=== PATIENT | male | born 1965 | race Caucasian/White ===

== ENCOUNTER 2017-11-21 17:07 | Emergency (ER) | payer MEDICARE, MEDICAID ==
[~2017-11-21] VITALS: Ht 175.3 cm; Wt 78.0 kg
[~2017-11-21 17:07] MED LIST: ABILIFY5 MG PO; AMBIEN5 MG PO; ARTANE2 MG PO; AUGMENTIN 875-1 EAC1 ORAL; CLINDAMYCIN HC300 MG ORAL; COGENTIN1 MG PO; COMBIGAN EYE DRO5 ML OP; LEXAPRO10 MG PO; LYRICA50 MG PO; MELOXICAM15 MG PO; MOM30 ML PO; NEURONTIN100 MG PO; OMEPRAZOLE20 M2 PO; OXYCONTIN60 MG PO; TYLENOL 8 HOUR650 M1 PO; VALIUM2 MG PO; ZOFRAN4 MG PO
[2017-11-21 20:55] VITALS: BP 155/100
[2017-11-21] MEDS ORDERED: LORazepam Inj 2mg/ml 1ml IM ONE ×2 (21:00→22:00)
[2017-11-21] MEDS ORDERED: LIBRIUM25 MG ORAL (21:59)
[2017-11-21 22:00] VITALS: BP 146/94
[2017-11-21 22:15] VITALS: BP 146/94
--- NOTE | 2017-11-22 14:22 | Emergency Room Report ---
History of Present Illness General Chief Complaint: General Complaint Source: Patient Present Illness HPI 52-year-old male presents ED for evaluation. Patient states he was sent here to be admitted for alcohol detox and for psych evaluation. Patient states he is history at all abuse per states his last drink was earlier today. Patient also states has history of bipolar. Denies any suicidal or homicidal ideation. Denies hearing voices. Denies any other drug use. No other aggravating or leading factors. Denies any other associated symptoms Allergies: Coded Allergies: No Known Allergies (Unverified , 01/24/13) Patient History Past Medical History: psych hx Past Surgical History: none Pertinent Family History: none Social History: Reports: alcohol use, Denies: smoking, drug use Immunizations: UTD Reviewed Nursing Documentation: PMH: Agreed, PSxH: Agreed Nursing Documentation-PMH Hx Cardiac Problems: No - ALCOHOLISM Hx Cancer: No Hx Gastrointestinal Problems: Yes Review of Systems All Other Systems: negative except mentioned in HPI Physical Exam Vital Signs Date Time Temp Pulse Resp B/P (MAP) Pulse Ox O2 Delivery O2 Flow Rate FiO2 11/21/17 20:31 98.1 102 18 155/100 96 Room Air Sp02 EP Interpretation: reviewed, normal General Appearance: no apparent distress, alert, GCS 15, non-toxic Head: normocephalic, atraumatic Eyes: bilateral eye normal inspection, bilateral eye PERRL ENT: hearing grossly normal, normal pharynx, no angioedema, normal voice Neck: full range of motion, supple/symm/no masses Respiratory: chest non-tender, lungs clear, normal breath sounds, speaking full sentences Cardiovascular #1: regular rate, rhythm, no edema Cardiovascular #2: 2+ carotid (R), 2+ carotid (L), 2+ radial (R), 2+ radial (L) , 2+ dorsalis pedis (R), 2+ dorsalis pedis (L) Gastrointestinal: normal bowel sounds, non tender, soft, non-distended, no guarding, no rebound Rectal: deferred Genitourinary: normal inspection, no CVA tenderness Musculoskeletal: back normal, gait/station normal, normal range of motion, non- tender Neurologic: alert, oriented x3, responsive, motor strength/tone normal, sensory intact, speech normal Psychiatric: judgement/insight normal, memory normal, anxious Reflexes: 3+ bicep (R), 3+ bicep (L), 3+ tricep (R), 3+ tricep (L), 3+ knee (R) , 3+ knee (L) Skin: normal color, no rash, warm/dry, well hydrated Lymphatic: no adenopathy Medical Decision Making Diagnostic Impression: Primary Impression: Alcohol withdrawal Qualified Codes: F10.239 - Alcohol dependence with withdrawal, unspecified ER Course Hospital Course 52-year-old male presents ED complaining of shaking, stating he is in withdrawal. Chronic history of alcohol use Differential diagnoses include: Alcohol intoxication, drug abuse, opioid withdrawal, alcohol withdrawal, dehydration, drug seeking behavior Clinical course Patient placed on stretcher. after intial history, physical exam reveals a middle-aged male in no acute distress. Patient appears anxious but not tremulous. Vital stable. Mentating well. No signs of DTs I do not believe patient requires admission at this time. Given Ativan here. Remains stable. I will discharge with Librium. Recommended followup with PMD spoke to PMD Dr Crespo; he agrees with plan i. I feel this is a highly complex case requiring extensive working including EKG/Rhythm strip, Xray/CT/US, Blood/urine lab work, repeat exams while in ED, and administration of strong opiates/narcotics for pain control, admission to hospital or close patient follow up. Diagnosis - alcohol withdrawal Stable and discharged to home with prescription for Librium. Followup with PMD. Return to ED if symptoms recur or worsen Last Vital Signs Date Time Temp Pulse Resp B/P (MAP) Pulse Ox O2 Delivery O2 Flow Rate FiO2 11/21/17 22:15 98.1 94 18 146/94 97 Room Air Status: improved Disposition: HOME, SELF-CARE Condition: Stable Scripts Chlordiazepoxide (Chlordiazepoxide HCl) 25 Mg Capsule 25 MG ORAL THREE TIMES A DAY, #15 CAP 0 Refills Prov: SOL DAVIS M.D. 11/21/17 Patient Instructions: Alcohol Withdrawal SOL DAVIS M.D. Nov 22, 2017 14:22
== END 2017-11-21 22:15 | disposition home or self-care (01) ==
LOC: EMR 17:59
DX: F10.239 Alcohol dependence with withdrawal, unspecified (principal)
CPT/HCPCS: 96372; 99284

== ENCOUNTER 2019-03-20 02:36 | Emergency (ER) | payer MEDICARE, MEDICAID ==
[~2019-03-20] VITALS: Ht 170.2 cm; Wt 63.5 kg
[~2019-03-20 02:36] MED LIST changes: +LIBRIUM25 MG ORAL
--- NOTE | 2019-03-20 03:05 | Emergency Room Report ---
History of Present Illness General Chief Complaint: Lower Back Pain or Injury Source: Patient Present Illness HPI This is a 53-year-old male with a history of chronic pain. He takes OxyContin and oxycodone for his pain. He claimed that his been out of his pain medication for a week. Complaining of lower back pain. Pain is 10 out of 10. No radiation but no fever chills but no nausea no vomiting. Denies any other complaint. No incontinence of bowel or urine. No trauma. No fever. He claimed that the pharmacy has his medication on back order. Other pharmacies do not have his medication. Allergies: Coded Allergies: No Known Allergies (Unverified , 01/24/13) Patient History Past Medical History: see triage record, old chart reviewed Past Surgical History: other Pertinent Family History: none Social History: Denies: smoking Immunizations: other Reviewed Nursing Documentation: PMH: Agreed; PSxH: Agreed Nursing Documentation-PM Past Medical History: No History, Except For Hx Cardiac Problems: No - ALCOHOLISM Hx Cancer: No Hx Gastrointestinal Problems: Yes Review of Systems Eye: Denies: eye pain, blurred vision ENT: Denies: ear pain, nose congestion, throat swelling Respiratory: Denies: cough, shortness of breath Cardiovascular: Denies: chest pain, palpitations Gastrointestinal: Denies: abdominal pain, diarrhea, nausea, vomiting Musculoskeletal: Reports: back pain; Denies: joint pain Skin: Denies: rash Neurological: Denies: headache, numbness Endocrine: Denies: increased thirst, increased urine Hematologic/Lymphatic: Denies: easy bruising All Other Systems: negative except mentioned in HPI Physical Exam Vital Signs Date Time Temp Pulse Resp B/P (MAP) Pulse Ox O2 Delivery O2 Flow Rate FiO2 03/20/19 02:40 97.9 93 18 96 Room Air vitals unremarkable Sp02 EP Interpretation: reviewed, normal General Appearance: well appearing, no apparent distress, alert Head: normocephalic, atraumatic Eyes: bilateral eye PERRL, bilateral eye EOMI ENT: hearing grossly normal, normal pharynx Neck: full range of motion, supple, no meningismus Respiratory: chest non-tender, lungs clear, normal breath sounds Cardiovascular #1: regular rate, rhythm, no murmur Gastrointestinal: normal bowel sounds, non tender, no mass, no organomegaly, no bruit, non-distended Musculoskeletal: back normal - Tenderness to the lower Back. No deformity. No anesthesia., gait/station normal, normal range of motion Psychiatric: mood/affect normal Skin: warm/dry Medical Decision Making Diagnostic Impression: Primary Impression: Low back pain Qualified Codes: M54.5 - Low back pain ER Course Patient presents with back pain. No evidence of cauda equina syndrome, spinal epidural abscess or neoplastic process. Patient has a history of alcohol abuse and intoxication. He said his been out of his pain medication for over a week. He filled a prescription for oxycodone 30 mg #60 on March 08. A week prior to that he withdrew prescription for oxycodone total of 60 tablets. He usually get his refills first week of the month. [facility] pharmacy [facility]. Patient in no problem getting his prescriptions filled. He is in independent living. I suspect no by mouth dependence and drug-seeking behavior. I am uncomfortable prescribing her giving him narcotics at this point in time. Last Vital Signs Date Time Temp Pulse Resp B/P (MAP) Pulse Ox O2 Delivery O2 Flow Rate FiO2 03/20/19 02:40 97.9 93 18 96 Room Air Status: improved Disposition: HOME, SELF-CARE Condition: Stable Patient Instructions: Back Pain, Adult Additional Instructions: Follow-up with your doctor in 7 days. Take your medication. Return if worse. Thuan Lopez MD March 20, 2019 03:05
[2019-03-20 03:10] VITALS: BP 131/92
--- NOTE | 2019-03-20 03:10 | NUR ---
ED Nurse Note: RECIEVED PT WALKED IN WITH C/O ABD PAIN, PT IS IN BED SLEEPING AROUSES EASILY TO VERBAL STIMULI, PT STATES HE HAS BEEN DRINKING, PT HAS STRONG WTOH ODOR NOTED, PT ALSO WEARING ARMBAND FROM HOSPITAL JUST RELEASED WITH TIME AND DATE, PT WAS RELEASED FROM [facility] VIA [facility] AND INSTEAD OF HOME HAD [facility]I BRING HIM HER FOR PAIN MEDS, PT ASKING FOR MED REFILL, HAS RECORDS OF PT HAVING MEDS REFILLED 2 DAYS AGO, PT ADMITS TO HAVING THEM FILLED, PT WAS GIVEN F/U INFO FOR PMD AND AFTER CARE INSTRUCTIONS, TP WAS GIVEN MOTRIN FOR PAIN AND DISCHARGED BACK HOME, PT IS AWAKE, ALERT AND ORIENTED X 4, PT STATES HE HAS HIS OWN MONEY AND CREDIT CARDS FOR [employer], PT LEFT AMBULATING IN NAD NOTED. ARMBAND REMOVED.
[2019-03-20 03:15] VITALS: BP 131/92
== END 2019-03-20 03:15 | disposition home or self-care (01) ==
LOC: EMR 02:56
DX: M54.5 Low back pain (principal)
CPT/HCPCS: 99282

== ENCOUNTER 2019-06-14 05:03 | Emergency (ER) | payer MEDICARE, MEDICAID ==
[~2019-06-14] VITALS: Ht 167.6 cm; Wt 72.1 kg
--- NOTE | 2019-06-14 05:15 | NUR ---
ED Nurse Note: Recieved pt from streets with many complaints, pt c/o chronic back pain at 07/23, states cant swallow and has esophagus problem, and now stating he is homeless and kicked out of SNF where he was residing, pt denies cp, no sob or labored breathing, pt assisted to gowning and bed, denies any other discomforts or complaints.
--- NOTE | 2019-06-14 05:33 | Emergency Room Report ---
History of Present Illness General Chief Complaint: General Complaint Source: Patient, Medical Record Present Illness HPI HPI: 54-year-old male with a history of chronic back pain, GERD with possible Smith's esophagus, alcohol abuse presenting for evaluation of chronic back pain, difficulty swallowing. These conditions have been going on for several months and the patient states there is been no sudden change today, no reinjury but simply feels that he needs to have these issues addressed. He was seen at [facility] for back pain earlier this evening. He states that he lost his prescriptions for OxyContin and oxycodone which he gets from his PMD. He states these prescriptions were in his wallet and he has lost his wallet and therefore cannot fill his prescriptions. He denies any urinary retention, lower extremity weakness, saddle anesthesia or fecal incontinence. He is starting to feel as if he is withdrawing from opiates and notes some loose stools. Regarding his difficulty swallowing, he states he was diagnosed with Smith's esophagus by CT scan at a [facility] several months ago but has not yet had any follow-up. He is able to tolerate solids and liquids but s says it feels like they get stuck in the throat. Currently, he has no foreign body sensation in his esophagus. He is requesting admission for medical evaluation of these chronic symptoms and states that he is having difficulty gaining weight because he is having a hard time swallowing. Otherwise, he denies any fevers, chills, headache, chest pain, shortness of breath, vomiting, rash. PMH: Chronic back pain, alcohol abuse in the past, GERD PSH: Reviewed in chart Allergies: None listed Social Hx: Former alcohol abuse Allergies: Coded Allergies: No Known Allergies (Unverified , 06/14/19) Nursing Documentation-PMH Past Medical History: No History, Except For Hx Cardiac Problems: No - ALCOHOLISM Hx Cancer: No Hx Gastrointestinal Problems: Yes Review of Systems All Other Systems: negative except mentioned in HPI Physical Exam Vital Signs Date Time Temp Pulse Resp B/P (MAP) Pulse Ox O2 Delivery O2 Flow Rate FiO2 06/14/19 05:07 89.2 81 18 151/95 (113) 95 Room Air General: Awake and alert, no acute distress HEENT: NC/AT. EOMI. uvula midline. Neck: Supple, trachea midline Chest Wall: No tenderness, no deformity Cardiovascular: RRR. S1 and S2 normal. No murmur appreciated Resp: Normal work of breathing. No cough, wheezing or crackles appreciated Abdomen: Abdomen is soft, nondistended. Mildly tender diffusely. No guarding. No masses. Skin: Intact. No abrasions, laceration or rash over the exposed skin MSK: Normal tone and bulk. Moving all extremities. No obvious deformity. Can ambulate with a steady gait Neuro: Awake and alert. Mentating appropriately. Sensation is intact over the dermatomes of the upper and lower extremity's bilaterally. Back/Spine: Notes diffuse tenderness over the thoracic and lumbosacral spine in the midline, paraspinal regions without obvious step-off or deformity Medical Decision Making ER Course 54-year-old male with a history of chronic back pain and alcohol abuse presenting for evaluation of chronic pain without acute injury as well as several months difficulty swallowing attributed to a presumed Smith's esophagus. There is been no change in this either however the patient is stating that he is now losing weight as it is very difficult for him to eat. He states he currently does not have a globus sensation but that he would like admission for medical work-up of these multiple chronic problems in addition to withdrawal symptoms as he has not had his OxyContin or his oxycodone for his chronic back pain since losing his prescriptions. We will check labs to evaluate for gross metabolic derangements and give intramuscular Toradol the patient states he cannot tolerate pills at this time. Disposition will depend on results Reevaluation Time: 07:00 Last Vital Signs Date Time Temp Pulse Resp B/P (MAP) Pulse Ox O2 Delivery O2 Flow Rate FiO2 8/19 05:07 89.2 81 18 151/95 (113) 95 Room Air Status: unchanged Reevaluation Impression CBC and chemistry of returned within normal limits. No evidence of significant malnutrition. The patient did receive Toradol but noted only minimal improvement. He is requesting admission as he states he no longer has anywhere to stay and needs help with his medications. We have offered him social work evaluation to which she is agreeable. I have also given him 0.5 mg of Ativan for anxiety. He states he was previously on Ativan and Xanax prescribed by his doctor but no longer has access to these medications. He does not appear to be in withdrawal from either opiates, benzodiazepines or alcohol at this time but does have a history of such in the past. Patient will be signed out to Dr. Rossi pending social work evaluation and ultimate disposition. He remains in stable condition. Please note that this report is being documented using DRAGON technology. This can lead to erroneous entry secondary to incorrect interpretation by the dictating instrument. Signed Out To: Dr. Rossi Referrals: Mauricio Crespo MD (PCP) Jacob Torres MD Jun 14, 2019 05:33
[2019-06-14] MEDS ORDERED: Ketorolac 60mg Inj IM ONE (06:00)
[2019-06-14 06:08] LABS: BASOPHILS % (AUTO) 1.1 % (0.0-2.0); EOSINOPHILS % (AUTO) 2.1 % (0.0-3.0); HEMATOCRIT 35.3 % (42.0-52.0); HEMOGLOBIN 11.6 G/DL (14.2-18.0); LYMPHOCYTES % (AUTO) 9.9 % (20.0-45.0); MEAN CORPUSCULAR VOLUME 94 FL (80-99); MONOCYTES % (AUTO) 8.6 % (1.0-10.0); NEUTROPHILS % (AUTO) 78.3 % (45.0-75.0); PLATELET COUNT 364 K/UL (150-450); RED BLOOD COUNT 3.77 M/UL (4.70-6.10); RED CELL DISTRIBUTION WIDTH 14.9 % (11.6-14.8); WHITE BLOOD COUNT 9.9 K/UL (4.8-10.8)
[2019-06-14 06:15] LABS: ANION GAP 6 mmol/L (5-15); BLOOD UREA NITROGEN 9 mg/dL (7-18); CALCIUM 8.8 MG/DL (8.5-10.1); CARBON DIOXIDE 31 MMOL/L (21-32); CHLORIDE 105 MMOL/L (98-107); CREATININE 0.6 MG/DL (0.55-1.30); POTASSIUM 3.1 MMOL/L (3.5-5.1); SODIUM 142 MMOL/L (136-145)
[2019-06-14 06:19] LABS: ALANINE AMINOTRANSFERASE 12 U/L (12-78); ALBUMIN 2.8 G/DL (3.4-5.0); ALBUMIN/GLOBULIN RATIO 0.5 (1.0-2.7); ALKALINE PHOSPHATASE 72 U/L (46-116); ASPARTATE AMINO TRANSFERASE 18 U/L (15-37); BILIRUBIN,TOTAL 0.1 MG/DL (0.2-1.0); PHOSPHORUS 3.6 MG/DL (2.5-4.9)
--- NOTE | 2019-06-14 07:05 | NUR ---
ED Nurse Note: Pt continues to rest in bed, sleeping, arouses easily to verbal stimuli, denies any discomforts or changes, pt given meds as ordered for pain, no distress or changes noted, am report given to oncoming nurse.
[2019-06-14 07:41] VITALS: BP 148/87
--- NOTE | 2019-06-14 07:41 | NUR ---
ED Nurse Note: pt ambulated to bathroom with steady gait.
--- NOTE | 2019-06-14 07:49 | NUR ---
ED Nurse Note: pt requested to be admitted. reported to ERMD and he is at bedside.
--- NOTE | 2019-06-14 07:59 | NUR ---
ED Nurse Note: Dr. Rossi is at bedside talking to the pt as well.
[2019-06-14] MEDS ORDERED: LORazepam 0.5mg tab ORAL ONE (08:00)
--- NOTE | 2019-06-14 08:50 | NUR ---
ED Nurse Note: SW contacted.
--- NOTE | 2019-06-14 09:15 | NUR ---
Social Service Note SW and homeless coordinator met with patient to assess for services upon discharge. Patient states he was a resident at [facility], he went to an MD appointment and wasn't allowed to return to facility. Patient states he took LIFT and came to the hospital to see Dr. Crespo. SW attempted to discussed independent living. Patient became agitated and stated he didn't need anything for SW. Patient got off bed, took his belongings and left ER.
--- NOTE | 2019-06-14 09:20 | NUR ---
ED Nurse Note: THOMAS and her assistance at bedside.
--- NOTE | 2019-06-14 09:29 | NUR ---
ELOPEMENT: Pt ambulated out with all of his belongings after talking to the social service director. pt was told to wait for the discharge paper but he stated "I don't fucking need it." no iv line present and id band removed prior to leave. refused to take last set of vital signs. steady gait, aao x4, refused food or providing address. pt has weather proper clothes. no visual acute distress noted upon leaving.
[2019-06-14 09:31] VITALS: BP 148/87
== END 2019-06-14 09:31 | disposition left against medical advice (07) ==
LOC: EMR 05:25
DX: M54.9 Dorsalgia, unspecified (principal); G89.29 Other chronic pain; K21.9 Gastro-esophageal reflux disease without esophagitis
CPT/HCPCS: 36415; 80053; 83735; 84100; 85025; 96372; 99284

== ENCOUNTER 2019-07-03 21:27 | Emergency (ER) | payer MEDICARE, MEDICAID ==
[~2019-07-03] VITALS: Ht 167.6 cm; Wt 59.0 kg
--- NOTE | 2019-07-03 21:45 | NUR ---
ED Nurse Note: Recieved pt BIBA with c/o "I need some ativan", pt has hx of etoh abuse and states he needs ativan, pt is awake, alert and oriented x 4, resting quietly in bed, denies pain, no sob or labored breathing, pt placed on cardiac monitoring, will resume care as ordered and continue to closely monitor.
[2019-07-03 22:30] VITALS: BP 112/75
[2019-07-03] MEDS ORDERED: LORazepam 1mg tab ORAL ONE (23:15)
--- NOTE | 2019-07-03 23:40 | NUR ---
ED Nurse Note: Pt has been discharged to home per his request also, pt is awake, alert and oriented x 4, pt was given sandwich and juice, tolerated well, pt has clean, dry, clothing on, pt left facility and refused d/c instructions, pt left ambulating with steady gait and states he has a way home, aware, nad noted during d/c to home.
[2019-07-04] VITALS: BP 112/75
--- NOTE | 2019-07-04 03:27 | Emergency Room Report ---
History of Present Illness General Chief Complaint: Alcohol Intoxication Source: Patient Present Illness HPI Patient presents with reports of low back pain Reports that he takes OxyContin for his pain and is out of medication Upon arrival the patient essentially asking for Ativan and sandwich Denies any headache denies any chest pain denies any nausea vomiting Denies any change with neurological status denies any acute focal lower extremity weakness denies any saddle paresthesia Allergies: Coded Allergies: BARBITURATES (Unverified Allergy, Unknown, 07/03/19) Patient History Past Medical History: see triage record Reviewed Nursing Documentation: PMH: Agreed; PSxH: Agreed Nursing Documentation-PM Past Medical History: No Stated History Hx Cardiac Problems: No - ALCOHOLISM Hx Cancer: No Hx Gastrointestinal Problems: Yes Review of Systems All Other Systems: negative except mentioned in HPI Physical Exam Vital Signs Date Time Temp Pulse Resp B/P (MAP) Pulse Ox O2 Delivery O2 Flow Rate FiO2 07/03/19 21:24 98.2 108 18 112/75 (87) 98 Room Air Sp02 EP Interpretation: reviewed, normal General Appearance: well appearing, no apparent distress Head: normocephalic, atraumatic Eyes: bilateral eye PERRL, bilateral eye EOMI ENT: hearing grossly normal, normal pharynx, TMs + canals normal, uvula midline Neck: full range of motion, supple, no meningismus, no bony tend Respiratory: lungs clear, normal breath sounds, no rhonchi, no respiratory distress, no retraction, no accessory muscle use Cardiovascular #1: normal peripheral pulses, regular rate, rhythm, no edema, no gallop, no JVD, no murmur Gastrointestinal: normal bowel sounds, non tender, soft, no mass, no organomegaly, non-distended, no guarding, no hernia, no pulsatile mass, no rebound Genitourinary: no CVA tenderness Musculoskeletal: normal inspection Neurologic: oriented x3, responsive, industrial relations representative III-XII nml as tested, motor strength/ tone normal, sensory intact Psychiatric: mood/affect normal Skin: no rash Lymphatic: normal inspection, no adenopathy Medical Decision Making Diagnostic Impression: Primary Impression: Back pain ER Course Patient requesting Ativan which he was provided with Patient ambulatory taking oral intake without any problems Patient requesting to go home while he was Resting taxi voucher and appropriate disposition was being set up Patient apparently ambulated out of the emergency room himself prior to getting the taxi voucher Last Vital Signs Date Time Temp Pulse Resp B/P (MAP) Pulse Ox O2 Delivery O2 Flow Rate FiO2 07/03/19 21:24 98.2 108 18 112/75 (87) 98 Room Air Status: improved Disposition: HOME, SELF-CARE Condition: Improved Referrals: NOT CHOSEN IPA/MD,REFERRING (PCP) Additional Instructions: Patient is provided with the discharge instructions notified to follow up with primary doctor in the next 2-3 days otherwise return to the er with any worsening symptoms. Please note that this report is being documented using Symbolic IO technology. This can lead to erroneous entry secondary to incorrect interpretation by the dictating instrument. Kelsey Gates DO Jul 04, 2019 03:27
== END 2019-07-04 | disposition home or self-care (01) ==
LOC: EDBD 21:27 → EMR 22:55
DX: M54.5 Low back pain (principal); Z88.6 Allergy status to analgesic agent; F10.20 Alcohol dependence, uncomplicated
CPT/HCPCS: 99282

== ENCOUNTER 2019-07-06 16:27 | Emergency (ER) | payer MEDICARE, MEDICAID ==
[~2019-07-06] VITALS: Ht 170.2 cm; Wt 68.0 kg
--- NOTE | 2019-07-06 16:40 | NUR ---
Note undone in EDM - 07/06/19 at 1655 by MYRANDA ED Nurse Note: DR COOK AT BEDSIDE FOR EVALUATION BUT PT DEMANDING TO SEE DR YOUSIF. PT INFORMED THAT DR YOUSIF IS NOT AN ER PHYSICIAN BY DR COOK. PT CONTINUES TO DEMAND TO SEE DR YOUSIF. PT UNHAPPY AND UPSET. PT SPEAKING IN FULL SENTENCES. NO SIGNS OF RESPIRATORY DISTRESS, RETRACTIONS, OR ACCESSORY MUSCLE USE NOTED. PT ELOPED FROM ER WITH STEADY GAIT AND ALL BELONGINGS.
--- NOTE | 2019-07-06 16:40 | NUR ---
ED Nurse Note: DR COOK AT BEDSIDE FOR EVALUATION BUT PT DEMANDING TO SEE DR YOUSIF. PT INFORMED THAT DR YOUSIF IS NOT AN ER PHYSICIAN BY DR COOK. PT CONTINUES TO DEMAND TO SEE DR YOUSIF. PT UNHAPPY AND UPSET. PT SPEAKING IN FULL SENTENCES. NO SIGNS OF RESPIRATORY DISTRESS, RETRACTIONS, OR ACCESSORY MUSCLE USE NOTED. PT ELOPED FROM ER WITH STEADY GAIT AND ALL BELONGINGS. PRIMARY RN UNABLE TO ASSESS PT OR OBTAIN VITALS DUE TO PT ELOPING.
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
[2019-07-06 16:51] VITALS: BP 118/78
== END 2019-07-06 17:22 | disposition home or self-care (01) ==
LOC: EDBD 16:27 → EMR 17:04
DX: S80.811A Abrasion, right lower leg, initial encounter (principal); F19.10 Other psychoactive substance abuse, uncomplicated; R06.02 Shortness of breath; Z88.8 Allergy status to other drugs, medicaments and biological substances; V09.00XA Pedestrian injured in nontraffic accident involving unspecified motor vehicles, initial encounter; Y92.410 Unspecified street and highway as the place of occurrence of the external cause
CPT/HCPCS: 99281